=== PATIENT | male | born 1990 | race Two or more races ===

== ENCOUNTER 2024-09-02 12:02 | Emergency (ER) | payer SELFPAY ==
[~2024-09-02] VITALS: Ht 175.3 cm; Wt 104.3 kg
[2024-09-02 12:06] VITALS: O2SAT 98
[2024-09-02 12:34] VITALS: BP 129/87; RESP 16; TEMP 98.1; O2SAT 97
[2024-09-02 12:35] VITALS: PULSE 115
== END 2024-09-02 16:31 | disposition home or self-care (01) ==
LOC: ER 12:02
DX: R05.9 Cough, unspecified (principal); R07.89 Other chest pain
CPT/HCPCS: 71045; 99283